=== PATIENT | female | born 1985 | race Caucasian/White ===

== ENCOUNTER 2016-05-20 05:45 | Emergency (ER) | payer OTHER ==
[~2016-05-20 05:45] MED LIST: ACTIVASE (50 MG/50 M; AUGMENTIN 875-1 EAC1 PO; AUGMENTIN875 MG PO; BUPROPION XL150 MG PO; CIPRO500 M1 PO; CIPRO500 MG PO; COLACE100 MG PO; DAPTOMYCIN; DITROPAN5 MG PO; LEVAQUIN250 M1 PO; LEVAQUIN500 MG PO; MIRALAX17 G1 PO; MOTRIN200 MG/TAB PO; MOTRIN400 MG/TAB PO; NORCO 5/325 TAB1 TAB PO; NORCO 5/3251 TA1 PO; NORCO 5/3251 TAB PO; OXYCODONE/APAP PO; PERCOCET 5/3251 TAB PO; PERCOCET 5MG/AP1 TA3 PO; SODIUM CHLORIDE10 M1; VYVANSE30 M1 PO; VYVANSE50 M1 PO; ZOFRAN ODT4 MG/UDTAB PO; ZOFRAN4 M2 PO; ZOFRAN4 MG PO
[2016-05-20] MEDS ORDERED: PROAIR HFA8.5 GM INH (08:33)
[2016-05-20] MEDS ORDERED: ZITHROMAX250 M1 PO (08:35)
== END 2016-05-20 08:40 ==
LOC: EDMED 05:45
DX: J20.9 Acute bronchitis, unspecified (principal); Z87.442 Personal history of urinary calculi; F17.200 Nicotine dependence, unspecified, uncomplicated